=== PATIENT | male | born 1980 ===

== ENCOUNTER 2018-01-28 19:55 | Emergency (ER) | payer MEDICAID ==
[~2018-01-28] VITALS: Ht 180.3 cm; Wt 91.6 kg
[2018-01-28] MEDS ORDERED: Bacitracin Oint UD TOPIC ONE (20:30)
[2018-01-28 20:52] VITALS: BP 139/74
[2018-01-28 21:08] LABS: APPEARANCE,URINE CLEAR; BILIRUBIN, URINE NEGATIVE (NEGATIVE); COLOR,URINE PALE YELLOW; GLUCOSE, URINE (UA) NEGATIVE (NEGATIVE); KETONES,URINE NEGATIVE (NEGATIVE); LEUKOCYTE ESTERASE ,URINE NEGATIVE (NEGATIVE); NITRITE,URINE NEGATIVE (NEGATIVE); PH,URINE 5 (4.5-8.0); PROTEIN,URINE NEGATIVE (NEGATIVE); UROBILINOGEN,URINE NORMAL MG/DL (0.0-1.0)
--- NOTE | 2018-01-28 22:07 | Emergency Room Report ---
History of Present Illness General Chief Complaint: Pelvic Pain Source: Patient Present Illness HPI Patient recently started on cream for T cruris. 3 days ago. Now with burning and testicular pain. Less pain in groin area. Pain was so severe he was unable to work today. Pain more scrotal as opposed to testicular. No discharge. No fevers, dysuria, NVD, abdominal pain, dyspnea, joint pain, hernia. No diabetes. No chronic medical problems. Allergies: Coded Allergies: No Known Allergies (Unverified , 01/28/18) Patient History Past Medical History: see triage record Social History: Denies: smoking Social History Narrative sales Reviewed Nursing Documentation: PMH: Agreed; PSxH: Agreed Nursing Documentation-PMH Past Medical History: No Stated History Review of Systems All Other Systems: negative except mentioned in HPI Physical Exam Vital Signs Date Time Temp Pulse Resp B/P (MAP) Pulse Ox O2 Delivery O2 Flow Rate FiO2 01/28/18 20:05 80 18 139/74 98 01/28/18 20:52 97.4 Sp02 EP Interpretation: reviewed, normal General Appearance: well appearing, no apparent distress Head: normocephalic, atraumatic Eyes: bilateral eye normal inspection, bilateral eye PERRL ENT: hearing grossly normal, normal voice Neck: full range of motion, supple Respiratory: no respiratory distress, speaking full sentences Gastrointestinal: normal inspection, normal bowel sounds, non tender, no hernia Genitourinary: other - scota with no erythema or edema, but some pinkness to tissue, testicles normal Musculoskeletal: no calf tenderness Neurologic: alert, normal gait Psychiatric: mood/affect normal Skin: no rash, other - T cruris and see genitals Medical Decision Making Diagnostic Impression: Primary Impression: Tinea cruris Additional Impression: Inflammation of scrotum ER Course Patient with T cruris with scrotal pain. DDx: cellulitis, reaction to medication, reaction to cream amongst others. UA indicated. Treatment with ointment. Improvement with ointment. Discussed need to change medication. Patient stable for outpatient observation and treatment. Last Vital Signs Date Time Temp Pulse Resp B/P (MAP) Pulse Ox O2 Delivery O2 Flow Rate FiO2 01/28/18 22:23 97.4 80 18 139/74 98 Status: improved Disposition: HOME, SELF-CARE Condition: Improved Scripts [tolnaftate ointment] No Conflict Check 1 % TOPIC BID, #30 Apply BID to area Prov: Damon Song MD 01/28/18 Bacitracin (Bacitracin) 28.4 Gm Oint...g. 1 APPLIC TOPIC BID, #20 GM Prov: Damon Song MD 01/28/18 Terbinafine Hcl (LAMISIL AT) 12 Gm Gel..gram. 1 APPLIC TP BID, #30 GM Prov: Damon Song MD 01/28/18 Referrals: TELMA PABLO,REFERRING (PCP) Damon Song MD Jan 28, 2018 22:07
[2018-01-28] MEDS ORDERED: TOLNAFTATE TOPIC (22:18)
[2018-01-28] MEDS ORDERED: BACITRACIN15 GM TOPIC (22:18)
[2018-01-28] MEDS ORDERED: LAMISIL AT12 GM TP (22:18)
[2018-01-28 22:23] VITALS: BP 139/74
== END 2018-01-28 22:22 | disposition home or self-care (01) ==
LOC: EMR 20:15
DX: B35.6 Tinea cruris (principal); N49.2 Inflammatory disorders of scrotum
CPT/HCPCS: 81003; 99283

== ENCOUNTER 2018-01-30 02:15 | Emergency (ER) | payer MEDICAID ==
[~2018-01-30] VITALS: Ht 180.3 cm; Wt 91.6 kg
[~2018-01-30 02:15] MED LIST: BACITRACIN15 GM TOPIC; LAMISIL AT12 GM TP; TOLNAFTATE TOPIC
[2018-01-30 02:30] VITALS: BP 117/81
--- NOTE | 2018-01-30 02:41 | Emergency Room Report ---
History of Present Illness General Chief Complaint: Skin Rash/Abscess Source: Patient Present Illness HPI This a 37-year-old male with no cerumen past medical history. He presents with chief complaint of groin pain. He was here little bit over 24 hours for the same thing. Was treated as tenia with medication. Also given bacitracin. He said is not improving. His been ongoing for about 2 weeks now. No drainage. No fever chills. Pain is 2 the skin. Worse with walking. Denies any other complaint. No nausea no vomiting. No testicular pain. Allergies: Coded Allergies: No Known Allergies (Unverified , 01/28/18) Patient History Past Medical History: see triage record, old chart reviewed Past Surgical History: none Pertinent Family History: none Social History: Denies: smoking Immunizations: other Reviewed Nursing Documentation: PMH: Agreed; PSxH: Agreed Nursing Documentation-PMH Past Medical History: No Stated History Review of Systems Eye: Denies: eye pain, blurred vision ENT: Denies: ear pain, nose congestion, throat swelling Respiratory: Denies: cough, shortness of breath Cardiovascular: Denies: chest pain, palpitations Gastrointestinal: Denies: abdominal pain, diarrhea, nausea, vomiting Genitourinary: Reports: pain Musculoskeletal: Denies: back pain, joint pain Skin: Denies: rash Neurological: Denies: headache, numbness Endocrine: Denies: increased thirst, increased urine Hematologic/Lymphatic: Denies: easy bruising All Other Systems: negative except mentioned in HPI Physical Exam Vital Signs Date Time Temp Pulse Resp B/P (MAP) Pulse Ox O2 Delivery O2 Flow Rate FiO2 01/30/18 02:24 97.9 75 16 117/81 96 vitals normal Sp02 EP Interpretation: reviewed, normal General Appearance: well appearing, no apparent distress, alert Head: normocephalic, atraumatic Eyes: bilateral eye PERRL, bilateral eye EOMI ENT: hearing grossly normal, normal pharynx Neck: full range of motion, supple, no meningismus Respiratory: chest non-tender, lungs clear, normal breath sounds Cardiovascular #1: regular rate, rhythm, no murmur Gastrointestinal: normal bowel sounds, non tender, no mass, no organomegaly, no bruit, non-distended Genitourinary: other - He has some skin discoloration to the groin and scrotal area. No evidence of any tear or drainage. No warmth or redness. No testicular tenderness. Musculoskeletal: back normal, gait/station normal, normal range of motion Psychiatric: mood/affect normal Skin: warm/dry Medical Decision Making Diagnostic Impression: Primary Impression: Testicular/scrotal pain ER Course Patient presents with scrotal pain. I see no evidence of any abscess. He may have tenia with overlying cellulitis. Pain may be secondary to small skin tear. No evidence of necrotizing fasciitis. We'll discharge home. Last Vital Signs Date Time Temp Pulse Resp B/P (MAP) Pulse Ox O2 Delivery O2 Flow Rate FiO2 01/30/18 02:30 97.9 70 16 117/81 96 Status: improved Disposition: HOME, SELF-CARE Condition: Stable Additional Instructions: Follow-up with your doctor in 7 days. Return if symptom worsen. Zechariah Chang MD Jan 30, 2018 02:41
[2018-01-30] MEDS ORDERED: LD2JL30 TOPIC (02:43)
[2018-01-30] MEDS ORDERED: Lidocaine HCl 2% Jelly 6ml Tube TOPIC ONE (02:45)
[2018-01-30 02:49] VITALS: BP 113/82
== END 2018-01-30 02:50 | disposition home or self-care (01) ==
LOC: EMR 02:35
DX: N50.82 Scrotal pain (principal)
CPT/HCPCS: 99282

== ENCOUNTER 2019-05-04 18:53 | Emergency (ER) | payer MEDICAID, OTHER ==
[~2019-05-04] VITALS: Ht 180.3 cm; Wt 93.4 kg
[~2019-05-04 18:53] MED LIST changes: +LD2JL30 TOPIC
[2019-05-04 18:57] VITALS: BP 158/91
[2019-05-04] MEDS ORDERED: GUAIFENESIN DM118 M1 ORAL (19:25)
[2019-05-04] MEDS ORDERED: ACETAMINOPHEN500 M3 ORAL (19:25)
[2019-05-04 19:28] VITALS: BP 150/88
--- NOTE | 2019-05-04 19:29 | Emergency Room Report ---
History of Present Illness General Chief Complaint: Flu Like Symptoms Source: Patient Present Illness HPI Patient is a 38-year-old male presents after increased cough and nasal congestion. Onset of symptoms approximately 3 to 4 days ago. Mild to moderate headache. Denies any neck stiffness. Nonproductive cough. Denies being a smoker. Denies any medical history. COVID-19 risk:Contact w/high r: No COVID-19 risk:Travel to affect: No Has patient experienced jeffers: No Coronavirus symptoms experienc: Cough, Flu-Like Symptoms Allergies: Coded Allergies: No Known Allergies (Unverified , 01/28/18) Patient History Past Medical History: see triage record Reviewed Nursing Documentation: PMH: Agreed; PSxH: Agreed Nursing Documentation-PMH Past Medical History: No Stated History Review of Systems All Other Systems: negative except mentioned in HPI Physical Exam Vital Signs Date Time Temp Pulse Resp B/P (MAP) Pulse Ox O2 Delivery O2 Flow Rate FiO2 05/04/19 18:49 98.6 77 18 158/91 (113) 98 Room Air General Appearance: well appearing, no apparent distress, alert, GCS 15 Head: normocephalic, atraumatic ENT: hearing grossly normal, normal voice Neck: full range of motion, supple Respiratory: chest non-tender, lungs clear, normal breath sounds, no respiratory distress, speaking full sentences Cardiovascular #1: normal inspection Gastrointestinal: normal inspection, non tender, soft Musculoskeletal: normal inspection, no calf tenderness Neurologic: alert, motor strength/tone normal, fire patrol III-XII nml as tested, oriented x3, normal gait Psychiatric: mood/affect normal Skin: no rash Medical Decision Making Diagnostic Impression: Primary Impression: Viral respiratory infection ER Course Patient presented for cough. Differential diagnosis include was not limited to viral respiratory infection, upper respiratory infection, bronchitis, pneumonia among others. Patient has a benign exam and does not appear to require any imaging or laboratory testing at this time. Patient is afebrile with no known sick contacts with coronavirus or recent travel. Does not appear to be in any respiratory distress. Oxygen saturation is normal and patient is currently afebrile. Is not taking antipyretics. Patient was noted to have symptoms consistent with a viral respiratory infection. Patient was advised to self quarantine 2 weeks. Was advised to return if began having fever increased difficulty breathing or other concerns. The patient is advised to follow up with primary care doctor for recheck. Patient is advised to return if any worsening condition or if any changes in status that are concerning. Last Vital Signs Date Time Temp Pulse Resp B/P (MAP) Pulse Ox O2 Delivery O2 Flow Rate FiO2 05/04/19 18:57 98.6 80 18 158/91 98 Room Air Status: improved Disposition: HOME, SELF-CARE Condition: Stable Scripts Acetaminophen* (ACETAMINOPHEN EXTRA STRENGTH*) 500 Mg Tablet 500 MG ORAL Q8H PRN for Fever/Headache/Mild Pain, #30 TAB Prov: Amandeep Mckeon MD 05/04/19 Guaifenesin/Dextromethorphan* (Guaifenesin Dm Syrup*) 5 Ml Syrup 5 ML ORAL Q8H PRN for FOR COUGH, #118 ML 0 Refills Prov: Amandeep Mckeon MD 05/04/19 Patient Instructions: Viral Respiratory Infection Amandeep Mckeon MD May 04, 2019 19:29
== END 2019-05-04 19:30 | disposition home or self-care (01) ==
LOC: EDBD 18:53 → EMR 19:29
DX: B34.9 Viral infection, unspecified (principal)
CPT/HCPCS: 99282